=== PATIENT | male | born 1960 | race Caucasian/White ===

== ENCOUNTER 2016-12-20 18:55 | Emergency (ER) | payer SELFPAY ==
--- NOTE | 2016-12-20 19:28 | ER Document Report ---
ED Medical Screen (RME) - General Stated Complaint: VOMITING Time seen by provider: 19:26 Mode of Arrival: Wheelchair Information source: Patient Notes: 56-year-old male presents to ED for right flank both hips and abdominal pain with nausea and vomiting and diarrhea since Friday 5 AM. Denies history of kidney stones. States he's had numerous issues with his abdomen but has never had a diagnosis. I have greeted and performed a rapid initial assessment of this patient. A comprehensive ED assessment and evaluation of the patient, analysis of test results and completion of medical decision making process will be conducted by an additional ED providers. TRAVEL OUTSIDE OF THE [place] IN LAST 30 DAYS: No - Related Data Allergies/Adverse Reactions: No Known Allergies Allergy (Unverified 02/20/15 14:25) Past Medical History - Past Medical History Cardiac Medical History: Denies: Hx Coronary Artery Disease, Hx Heart Attack, Hx Hypertension Pulmonary Medical History: Denies: Hx Asthma, Hx Bronchitis, Hx COPD, Hx Pneumonia Neurological Medical History: Denies: Hx Cerebrovascular Accident, Hx Seizures Musculoskeltal Medical History: Reports Hx Arthritis - Hip Past Surgical History: Reports: Hx Pancreatic Surgery - L hand. Denies: Hx Bowel Surgery, Hx Pacemaker - Immunizations Hx Diphtheria, Pertussis, Tetanus Vaccination: Yes Physical Exam - Vital signs Vitals: Temp Pulse Resp BP Pulse Ox 98.3 F 115 H 18 121/74 97 12/20/16 19:22 12/20/16 19:22 12/20/16 19:22 12/20/16 19:22 12/20/16 19:22 Course - Vital Signs Vital signs: Temp Pulse Resp BP Pulse Ox 98.3 F 115 H 18 121/74 97 12/20/16 19:22 12/20/16 19:22 12/20/16 19:22 12/20/16 19:22 12/20/16 19:22
[2016-12-20] MEDS ORDERED: ONDANSETRON 4 MG TAB.RAPDIS PO ONE (19:29)
[2016-12-20 19:47] LABS: ABSOLUTE LYMPHOCYTES (AUTO) 1.1 10^3/uL (0.5-4.7); ABSOLUTE NEUT (AUTO) 7.7 10^3/uL (1.7-8.2); BASOPHILS % (AUTO) 0.4 % (0-2); EOSINOPHILS % (AUTO) 0.1 % (0-6); HEMATOCRIT 47.3 % (37.9-51.0); HGB HCT DIFFERENCE 0.7; LYMPHOCYTES % (AUTO) 11.3 % (13-45); MEAN CORPUSCULAR HEMOGLOBIN 30.6 pg (27.0-33.4); MEAN CORPUSCULAR HGB CONC 33.8 g/dL (32.0-36.0); MEAN CORPUSCULAR VOLUME 91 fl (80-97); RED BLOOD COUNT 5.23 10^6/uL (4.35-5.55); RED CELL DISTRIBUTION WIDTH 13.4 % (11.5-14.0); SEGMENTED NEUTROPHILS % (AUTO) 78.2 % (42-78); WHITE BLOOD COUNT 9.8 10^3/uL (4.0-10.5)
[2016-12-20 20:07] LABS: ALANINE AMINOTRANSFERASE 26 U/L (21-72); ALBUMIN 4.7 g/dL (3.5-5.0); ALKALINE PHOSPHATASE 91 U/L (38-126); ANION GAP 18 (5-19); ASPARTATE AMINO TRANSFERASE 38 U/L (17-59); BLOOD UREA NITROGEN 23 mg/dL (7-20); CALCIUM 10.2 mg/dL (8.4-10.2); CARBON DIOXIDE 29 mmol/L (22-30); CHLORIDE 94 mmol/L (98-107); CREATININE RESULT 1.47 mg/dL (0.52-1.25); GLUCOSE 132 mg/dL (75-110); LIPASE 77.8 U/L (23-300); SODIUM 141.1 mmol/L (137-145); TOTAL PROTEIN 8.4 g/dL (6.3-8.2)
[2016-12-20 20:13] LABS: POTASSIUM 2.9 mmol/L (3.6-5.0)
[2016-12-20] MEDS ORDERED: LIDOCAINE 2% VISCOUS SOLN 20 ML UDCUP PO ONE (20:35)
[2016-12-20] MEDS ORDERED: METOCLOPRAMIDE HCL ORAL SOLN 10 MG/10 ML UDCUP PO ONE (20:35)
[2016-12-20] MEDS ORDERED: MAG HYDROX/AL HYDROX/SIMETH SUSP 30 ML UDCUP PO ONE (20:35)
[2016-12-20] MEDS ORDERED: FAMOTIDINE 20 MG TABLET PO ONE (20:35)
[2016-12-20] MEDS ORDERED: RINGERS SOLUTION,LACTATED 2,000 ML IV ONE (20:35)
[2016-12-20] MEDS ORDERED: POTASSI CL 20 MEQ/50 ML RIDER 50 ML IV ONE (20:36)
[2016-12-20] MEDS ORDERED: MORPHINE SULFATE 10 MG/ML INJ IV PRN (20:36)
[2016-12-20] MEDS ORDERED: POTASSIUM CHLORIDE 10 MEQ TABLET.SA PO ONE (20:36)
--- NOTE | 2016-12-20 20:38 | ER Document Report ---
ED General - General Chief Complaint: Flank Pain Stated Complaint: VOMITING Mode of Arrival: Wheelchair Notes: Patient is a 56-year-old male with past medical history of chronic hip pain for which she takes 800 mg of ibuprofen every 4 hours for the past 2 years who presents with 4 months of intermittent episodic vomiting. States that he will have 2-3 days of persistent vomiting with inability to tolerate oral intake and then this does spontaneously resolved. He presents today with concerns of an episode of vomiting that has been ongoing for 5 days. States that this is worse than prior episodes. Notes a associated mild epigastric abdominal pain which he describes as burning and throbbing in nature. It has gotten gradually worsens onset. He has not seen his primary care physician regarding today's concerns. He denies any melena or hematochezia. Denies any chest pain or shortness of breath. He has not noted that he seems to trigger these episodes and they do resolve without intervention. He has no prior history of abdominal surgeries. Denies any associated fever, headache or neck pain. TRAVEL OUTSIDE OF THE [place] IN LAST 30 DAYS: No - Related Data Allergies/Adverse Reactions: No Known Allergies Allergy (Verified 12/20/16 19:26) Past Medical History - General Information source: Patient - Social History Smoking Status: Never Smoker Chew tobacco use (# tins/day): No Frequency of alcohol use: Rare Drug Abuse: None Lives with: Spouse/Significant other Family History: Reviewed & Not Pertinent Patient has suicidal ideation: No Patient has homicidal ideation: No - Past Medical History Cardiac Medical History: Denies: Hx Coronary Artery Disease, Hx Heart Attack, Hx Hypertension Pulmonary Medical History: Denies: Hx Asthma, Hx Bronchitis, Hx COPD, Hx Pneumonia Neurological Medical History: Denies: Hx Cerebrovascular Accident, Hx Seizures Renal/ Medical History: Denies: Hx Peritoneal Dialysis Musculoskeltal Medical History: Reports Hx Arthritis - Hip Past Surgical History: Reports: Hx Pancreatic Surgery - L hand. Denies: Hx Bowel Surgery, Hx Pacemaker - Immunizations Hx Diphtheria, Pertussis, Tetanus Vaccination: Yes Review of Systems - Review of Systems Notes: Constitutional: Negative for fever. HENT: Negative for sore throat. Eyes: Negative for visual changes. Cardiovascular: Negative for chest pain. Respiratory: Negative for shortness of breath. Gastrointestinal: Positive for vomiting and abdominal pain Genitourinary: Negative for dysuria. Musculoskeletal: Negative for back pain. Skin: Negative for rash. Neurological: Negative for headaches, weakness or numbness. 10 point ROS negative except as marked above and in HPI. Physical Exam - Vital signs Vitals: Temp Pulse Resp BP Pulse Ox 98.3 F 115 H 18 121/74 97 12/20/16 19:22 12/20/16 19:22 12/20/16 19:22 12/20/16 19:22 12/20/16 19:22 Interpretation: Tachycardic Notes: PHYSICAL EXAMINATION: GENERAL: Appears mildly uncomfortable but in no acute distress HEAD: Atraumatic, normocephalic. EYES: Pupils equal round and reactive to light, extraocular movements intact, sclera anicteric, conjunctiva are normal. ENT: nares patent, oropharynx clear without exudates. Dry mucous membranes. NECK: Normal range of motion, supple without lymphadenopathy LUNGS: Breath sounds clear to auscultation bilaterally and equal. No wheezes rales or rhonchi. HEART: Regular rate and rhythm without murmurs ABDOMEN: Soft, mild epigastric and right upper quadrant abdominal tenderness on palpation, normoactive bowel sounds. No guarding, no rebound. No masses appreciated. EXTREMITIES: Normal range of motion, no pitting or edema. No cyanosis. NEUROLOGICAL: No focal neurological deficits. Moves all extremities spontaneously and on command. PSYCH: Normal mood, normal affect. SKIN: Warm, Dry, normal turgor, no rashes or lesions noted. Course - Re-evaluation Re-evalutation: 12/20/16 20:37 Patient presents with intermittent episodes of vomiting that been going on for the past 3 months typically lasting 2-3 days. Patient's clinical history is most consistent with likely gastric irritation the setting of excessive ibuprofen use. Alternative diagnostic considerations include pancreatitis, symptomatic cholelithiasis, acute cholecystitis. Patient does not have any evidence of elevated white blood cell count, LFT derangements, or an elevated lipase to support the diagnostic criteria for biliary pathology or acute pancreatitis. Right upper quadrant ultrasound will be obtained to further exclude. Patient also was noted to have hypokalemia likely secondary to persistent vomiting. Will proceed with IV hydration, antiemetics, and potassium as well as magnesium replacement 12/21/16 00:01 Patient feels much improved at this time, no longer complaining of any abdominal pain or vomiting. He has tolerated oral intake without difficulty. Potassium and magnesium repletion has been completed. At this time I believe the most likely etiology of patient's pain is gastric irritation secondary to excessive ibuprofen use based on a reassuring evaluation today this point. His hypokalemia as well as mild acute kidney injury are consistent with persistent vomiting.At this time will discharge with return precautions and follow-up recommendations. Verbal discharge instructions given a the bedside and opportunity for questions given. Medication warnings reviewed. Patient is in agreement with this plan and has verbalized understanding of return precautions and the need for primary care follow-up in the next 24-72 hours. - Vital Signs Vital signs: Temp Pulse Resp BP Pulse Ox 97.8 F 78 16 150/81 H 96 12/21/16 01:54 12/21/16 01:54 12/21/16 01:54 12/21/16 01:54 12/21/16 01:54 - Laboratory Result Diagrams: 12/20/16 19:40 12/20/16 19:40 Laboratory results interpreted by me: 12/20/16 12/20/16 12/20/16 19:40 19:40 23:20 Seg Neutrophils % 78.2 H Lymphocytes % 11.3 L Potassium 2.9 L* Chloride 94 L BUN 23 H Creatinine 1.47 H Est GFR (Non-Af Amer) 50 L Glucose 132 H Total Protein 8.4 H Urine Protein 100 H Urine Ketones 20 H Urine Urobilinogen 4.0 H - Diagnostic Test Radiology reviewed: Reports reviewed Discharge - Discharge Clinical Impression: Persistent vomiting, Dehydration, Hypokalemia Condition: Good Disposition: HOME, SELF-CARE Additional Instructions: Please discontinue taking all NSAIDs including ibuprofen that you take as this is likely causing her symptoms. Please follow-up with your primary care physician in the next several days. Return to emergency department immediately if you become unable to tolerate fluids, have new or worsening abdominal pain, began vomiting blood, have bloody stools, pass out, develop chest pain, shortness of breath, or have any other symptoms that are of concern to you. Referrals: YISSEL MORGAN MD [ACTIVE STAFF] - Follow up as needed
[2016-12-20] MEDS: MAGNESIUM SULFATE/D5W 100 ML IV SCH ×2 (21:00→23:30)
[2016-12-20 23:49] LABS: APPEARANCE,URINE SLIGHTLY-CLOUDY; BILIRUBIN,URINE NEGATIVE (NEGATIVE); GLUCOSE, URINE NEGATIVE (NEGATIVE); KETONES,URINE 20 mg/dL (NEGATIVE); LEUKOCYTE ESTERASE,URINE NEGATIVE (NEGATIVE); NITRITE,URINE NEGATIVE (NEGATIVE); PROTEIN,URINE 100 mg/dL (NEGATIVE)
[2016-12-21 01:55] VITALS: BP 150/81
== END 2016-12-21 02:04 | disposition home or self-care (01) ==
LOC: ER 18:55
DX: R11.10 Vomiting, unspecified (principal); N17.9 Acute kidney failure, unspecified; E87.6 Hypokalemia; E86.0 Dehydration; R10.13 Epigastric pain; R10.816 Epigastric abdominal tenderness; R10.811 Right upper quadrant abdominal tenderness; M16.10 Unilateral primary osteoarthritis, unspecified hip; M25.559 Pain in unspecified hip; G89.29 Other chronic pain; Z79.1 Long term (current) use of non-steroidal anti-inflammatories (NSAID); R00.0 Tachycardia, unspecified
CPT/HCPCS: 99284; 96375; 96365; 96366; 96368; 36415; 83690; 85025; 80053; 81001; 76705; S0119; J3490; J2270; J3475; J3480; J7120